=== PATIENT | male | born 1960 | race Caucasian/White ===

== ENCOUNTER 2017-08-07 07:44 | Outpatient (CLI) | payer OTHER ==
--- NOTE | 2017-08-07 12:10 | MRI ---
MR OF THE LEFT SHOULDER WITHOUT CONTRAST: History: Limited range of motion with pain. Comparison: None. FINDINGS: There is a partial thickness articular surface tear involving both the posterior supraspinatus and an terior infraspinatus at the location of the conjoined tendon. There is a full thickness component inv olving the anterior aspect of the infraspinatus tendon measuring 1.1 x 1 cm in its greatest mediolate ral AP dimensions respectively. The partial thickness component involving the posterior aspect of the supraspinatus involves 50% of the tendon thickness. There is no evidence of muscular atrophy. The bi ceps tendon is rotated. The biceps anchor complex, inferior glenohumeral labral ligamentous complex a ppear within normal limits. The glenohumeral articular surface is normal appearing. There is moderate AC joint osteoarthrosis. There is a type II acromion. No enlarged lymph nodes are evident. IMPRESSION: 1. Full thickness tear of the anterior infraspinatus with an adjacent partial thickness articular rain face component involving the posterior supraspinatus at the footprint. 2. Mild AC joint osteoarthrosis. POS: SOITO
== END 2017-08-07 07:45 | disposition home or self-care (01) ==
LOC: MRI 07:44
PROVIDERS: ATTEND Orthopaedic Surgery
DX: M25.512 Pain in left shoulder (principal); S41.012A Laceration without foreign body of left shoulder, initial encounter; M19.012 Primary osteoarthritis, left shoulder

== ENCOUNTER 2017-08-14 16:58 | Outpatient (CLI) | payer OTHER ==
[2017-08-14 18:10] LABS: Bilirubin Small (Negative); Blood, Urine Negative (Negative); Glucose, Urine (Dipstick) Negative (Negative); Ketone, Urine Negative (Negative); Nitrite Negative (Negative); Protein, Urine (Dipstick) Negative (Neg-Trace)
[2017-08-14 18:13] LABS: Bacteria/HPF None Seen HPF (None Seen); Hyaline Casts/LPF 0-3 HYALINE CAST LPF (0-3 Hyaline); RBC/HPF 0-3 HPF (0-3); Squamous Epithelial None Seen HPF (0-3); WBC/HPF 0-3 HPF (0-3)
[2017-08-14 18:15] LABS: Hematocrit 48.2 % (42.0-52.0); Mean Platelet Volume 7.6 fL (7.4-10.4); Red Blood Cell (RBC) Count 4.86 mill/uL (4.70-6.10); White Blood Cell (WBC) Count 6.4 thou/uL (4.8-10.8)
== END 2017-08-14 16:59 | disposition home or self-care (01) ==
LOC: LABBT 16:58
PROVIDERS: ATTEND Orthopaedic Surgery
DX: Z01.812 Encounter for preprocedural laboratory examination (principal); M75.102 Unspecified rotator cuff tear or rupture of left shoulder, not specified as traumatic
CPT/HCPCS: 81001; 85027

== ENCOUNTER → 2017-08-22 | Day surgery (SDC) | payer OTHER ==
[2017-08-14 17:24] VITALS: BMI 29.6
[~2017-08-22] MED LIST: Bupivacaine/Epinephrine 0.25% 30 ML VIAL ONE; CEFAZOLIN/Water 2 GM/20 ML SYRINGE ONE; Dexamethasone 20 MG/5 ML VIAL ONE; Fentanyl 100 MCG/2 ML VIAL IV PRN; Fentanyl 100 MCG/2 ML VIAL ONE; Glycopyrrolate 0.2 MG/ML 5 ML SYRINGE ONE; HYDROcodone/Acetaminophen 5/325 mg Tablet PO PRN; Ketorolac Tromethamine 30 MG/ML VIAL IVP PRN; Lidocaine 1% PF 5 ML VIAL ONE; Metoclopramide HCl 10 MG/2 ML VIAL ONE; Midazolam HCl 2 mg/2 ml Vial ONE; Ondansetron HCl/PF 4 MG/2 ML Vial IVP PRN; Ondansetron HCl/PF 4 MG/2 ML Vial ONE; Promethazine HCl 25 MG/ML VIAL IM PRN; Propofol 200 MG/20 ML VIAL ONE; Ropivacaine 0.2% 550 ML 550 ML NERVE BLCK SCH; Ropivacaine 0.2% HCl/PF 20 ML ONE; Ropivacaine 0.5% HCl/PF (150 MG/30 ML VIAL) ONE; Zolpidem Tartrate 5 MG TAB PO PRN; diphenhydrAMINE 50 MG/ML VIAL ONE; ePHEDrine/0.9% NaCl/PF SYRINGE 50 mg/10 ml ONE; traMADol HCl 50 MG TAB PO PRN
--- NOTE | 2017-08-22 14:36 | OP ---
DATE OF SERVICE: 08/22/2017 PREOPERATIVE DIAGNOSES: Left full-thickness rotator cuff tear posterior leading edge to infraspinatu s supraspinatus. POSTOPERATIVE DIAGNOSES: Left full-thickness rotator cuff tear posterior leading edge to infraspinat us supraspinatus. PROCEDURE PERFORMED: Left rotator cuff repair, arthroscopic, double row. STAFF: Nakul Monae M.D. [employer] TEAM MEMBER: None. ANESTHESIA: Lizzy. The patient received general endotracheal intubation, interscalene block. ESTIMATED BLOOD LOSS: Less than 30 mL. TOURNIQUET TIME: None. IMPLANTS: A 5.5 Arthrex corkscrew, 4.75 SwiveLock Arthrex. ANTIBIOTICS: Ancef 2 grams. COMPLICATIONS: None. ESTIMATED BLOOD LOSS: Less than 30 mL. HISTORY OF PRESENT ILLNESS: Mr. Acosta is a 57-year-old male who presented to me with left shoulder pain which has gone on for many years. The patient has history of rotator cuff injury. The patient had pain with overhead elevation. The patient's MRI showed a full thickness supraspinatus edge, lead ing edge without retraction, no muscle atrophy. No biceps pathology. The patient understood the ris ks and benefits of a left rotator cuff repair to include pain, scar, bleeding, infection, damage to v ital structures, decreased range of motion or strength, failure of the procedure, continued pain desp ite surgical intervention, loss of life or limb. The patient understood the risks and benefits and elected to proceed. PROCEDURE IN DETAIL: Timeout was performed designating the patient's left upper extremity as the ope rative site based on sight, consents, markings. After completion of timeout, the patient was intubat ed. He was placed in a beach chair position. His left shoulder was prepped and draped in sterile fa shion. The patient had a posterior working portal placed and anterior working portal placed to evan dyer intraarticularly. The leading edge of the labrum was slightly frayed from the scope tip, but th ere was no full-thickness tear, there was no SLAP tear. The biceps looked good through its course. You could see the full thickness tear intraarticularly. The subscap was then placed, there were no a rticular defects humeral head or glenoid. I then moved subacromially and debrided the bursa, found t he rotator cuff tear. I placed my lateral working portal just off the anterolateral aspect of the ac romion for 4 total portals, one anterolateral was placed for my anchor, placed positioning and placem ent. I placed a cannula, debrided off the bone to healthy bleeding bone. I debrided the cuff. I th en placed an anchor in the center my defect which I had to tap. A 5.5 Arthrex corkscrew, we then dey tita 4 sutures through the rotator cuff and tied horizontal mattress sutures into the lateral row late rally to tack it down. There was still a little edge, a little dog ear anteriorly which I used 1 of the SwiveLocks sutures to pass a horizontal mattress sutures through to help to tack it down for a ni ce stable fixation. I cut those sutures, removed my last stitch. I washed and took final pictures, closed with 3-0 nylon. The patient will remain in a sling. Elbow, wrist, and hand motion until he follows up in 2 weeks. T he patient has already been given tramadol and hydrocodone for pain.
== END ==
LOC: SDC 09:48
PROVIDERS: ATTEND Orthopaedic Surgery
PROC: 0LQ24ZZ Repair Left Shoulder Tendon, Percutaneous Endoscopic Approach (ICD-10-PCS; principal; 2017-08-22)
DX: M75.112 Incomplete rotator cuff tear or rupture of left shoulder, not specified as traumatic (principal); F17.200 Nicotine dependence, unspecified, uncomplicated; Z90.49 Acquired absence of other specified parts of digestive tract; Z98.890 Other specified postprocedural states
CPT/HCPCS: A4306; C1713; J1100; J1200; J2001; J2250; J2405; J2704; J2765; J2795; J3010

== ENCOUNTER 2020-10-11 11:17 | Day surgery (SDC) | payer OTHER ==
[~2020-10-11 11:17] MED LIST changes: -Bupivacaine/Epinephrine 0.25% 30 ML VIAL ONE; -CEFAZOLIN/Water 2 GM/20 ML SYRINGE ONE; -Dexamethasone 20 MG/5 ML VIAL ONE; -Fentanyl 100 MCG/2 ML VIAL IV PRN; -Fentanyl 100 MCG/2 ML VIAL ONE; -Glycopyrrolate 0.2 MG/ML 5 ML SYRINGE ONE; -HYDROcodone/Acetaminophen 5/325 mg Tablet PO PRN; -Ketorolac Tromethamine 30 MG/ML VIAL IVP PRN; -Metoclopramide HCl 10 MG/2 ML VIAL ONE; -Midazolam HCl 2 mg/2 ml Vial ONE; -Ondansetron HCl/PF 4 MG/2 ML Vial IVP PRN; -Ondansetron HCl/PF 4 MG/2 ML Vial ONE; +PROPOFOL 200 MG/20 ML VIAL ONE; -Promethazine HCl 25 MG/ML VIAL IM PRN; -Propofol 200 MG/20 ML VIAL ONE; -Ropivacaine 0.2% 550 ML 550 ML NERVE BLCK SCH; -Ropivacaine 0.2% HCl/PF 20 ML ONE; -Ropivacaine 0.5% HCl/PF (150 MG/30 ML VIAL) ONE; +Succinylcholine 200 MG/10 ml SYRINGE FS ONE; -Zolpidem Tartrate 5 MG TAB PO PRN; -diphenhydrAMINE 50 MG/ML VIAL ONE; -ePHEDrine/0.9% NaCl/PF SYRINGE 50 mg/10 ml ONE; -traMADol HCl 50 MG TAB PO PRN
[2020-10-11] MEDS ORDERED: Famotidine/PF 20 mg/2ml Vial ONE (12:27)
[2020-10-11] MEDS ORDERED: Scopolamine 1.5 mg/72 hour Patch ONE (12:27)
[2020-10-11] MEDS ORDERED: Levofloxacin 500 mg/D5W 100 ml Premix Bag ONE (12:43)
[2020-10-11] MEDS ORDERED: Iothalamate Meglumine 60% 50 ML VIAL FS ONE (12:45)
[2020-10-11] MEDS ORDERED: Midazolam HCl 2 mg/2 ml Vial ONE (13:43)
[2020-10-11] MEDS ORDERED: Fentanyl 100 MCG/2 ML VIAL ONE (13:43)
--- NOTE | 2020-10-11 13:47 | OP ---
DATE OF PROCEDURE: 10/11/2020 PREOPERATIVE DIAGNOSIS: Left ureteral stone. POSTOPERATIVE DIAGNOSIS: Left ureteral stone. PROCEDURES PERFORMED: Left ureteroscopy, laser lithotripsy, basket extraction of stone, retrograde pyelogram with intraoperative interpretation of radiologic imaging, 4.8 x 26 double-J ureteral stent with string placement. ANESTHESIA: General. COMPLICATIONS: None. ESTIMATED BLOOD LOSS: None. SPECIMEN: Left ureteral stone fragments. DESCRIPTION OF PROCEDURE: After informed consent, the patient was taken to the operating room, transferred to the table under his own power. Anesthesia was established. A time-out was performed, showing the correct patient, site, and procedure. Preoperative antibiotics were administered. He was prepped and draped in the lithotomy position. The semi-rigid ureteroscope was advanced through the urethra into the bladder. The bladder was examined noting no obvious abnormalities. The left ureter was cannulated with a wire, which was passed up to the level of the renal pelvis under fluoroscopic guidance. The scope was withdrawn and reinserted alongside the wire into the distal ureter, however, was unable to access the stone, and so the scope was withdrawn and an access sheath passed over the wire into the mid ureter to dilate the ureter to allow passage of the scope. Retrograde pyelogram was performed through this showing good filling of the ureter and renal pelvis without extravasation or hydronephrosis. The ureteroscope was then passed alongside the wire once again, until the stone was identified in the distal ureter. This was treated with a 365 micron laser fiber into several small pieces. These were removed with the Nitinol basket and passed off as specimen. The scope was passed into the mid to proximal ureter noting no further stone fragments. The scope was withdrawn and a 4.8 x 26 double-J ureteral stent with string attached was passed over the wire with a curl in the kidney and curl in the bladder under fluoroscopic guidance. The patient was awoken from anesthesia, transferred back to his hospital bed and taken to PACU in stable condition, where he was discharged home upon recovery. Job ID: [id number]
[2020-10-11] MEDS ORDERED: Oxybutynin 5 MG TAB ONE (13:54)
[2020-10-11] MEDS ORDERED: Labetalol HCl 100 MG/20 ML VIAL ONE (14:02)
--- NOTE | 2020-10-11 14:57 | RAD ---
RETROGRADE PYELOGRAM: 10/11/20 Total of six fluoroscopic images presented from OR. INDICATIONS: Intraoperative imaging during retrograde pyelogram procedure and stent placement. FINDINGS/IMPRESSION: Initial images shows canalization of the left ureter with wire which overlies the left upper collecti ng structures. Second image shows opacification of the left collecting structures. Final image shows placement of a left ureteral stent. POS: AGW
[2020-10-17 20:10] LABS: CA Oxalate Dihydrate 60 % (.); CA Oxalate Monohydrate 40 % (.); Color Brown (.); Stone Weight 17 mg (.)
== END 2020-10-11 15:36 | disposition home or self-care (01) ==
LOC: SDC 11:17
PROVIDERS: ATTEND Urology
PROC: 0T778DZ Dilation of Left Ureter with Intraluminal Device, Via Natural or Artificial Opening Endoscopic (ICD-10-PCS; principal; 2020-10-11)
PROC: 0TC78ZZ Extirpation of Matter from Left Ureter, Via Natural or Artificial Opening Endoscopic (ICD-10-PCS; principal; 2020-10-11)
DX: N20.1 Calculus of ureter (principal); F17.200 Nicotine dependence, unspecified, uncomplicated; Z79.899 Other long term (current) drug therapy
CPT/HCPCS: 74420; 82365; 88300; J1956; J2250; J2704; J3010; S0028